=== PATIENT | female | born 1955 | race African-American/Black ===

== ENCOUNTER 2016-04-14 13:13 | Emergency (ER) | payer BC ==
[~2016-04-14] VITALS: Ht 175.3 cm; Wt 99.8 kg
--- NOTE | ~2016-04-14 | EKG ---
[address] [place] [address] ELECTROCARDIOGRAM REPORT Name: CATHY COOK Room #: REG DONNA Wise#: [id number] Admission: 04/14/16 Attend Phys: Discharge: Date of : 55 Report #: [id number] THIS REPORT FOR: //name// [facility] ED Test Date: 2016-04-14 Test Time: 14:07:44 Pat Name: CATHY COOK Department: Room: Gender: F Factory Assembler: DARLING : 1955 Requested By: [place] Order Number: [id number] MD: Tray Zepeda Measurements Intervals [place] Rate: 68 P: 47 PA: 152 QRS: -17 QRSD: 88 T: 27 QT: 403 QTc: 429 Interpretive Statements Sinus rhythm Borderline left axis deviation No previous ECG available for comparison Electronically Signed On 04-14-2016 16:11:53 [employer]IF[employer] DIRECTOR by Tray Zepeda [email or web address] <ELECTRONICALLY SIGNED> By: Tray Zepeda MD 04/14/16 1611 1407 1407 Tray Zepeda MD /MARLENE
[~2016-04-14 13:13] MED LIST: ASPIR 8181 MG PO; DIOVAN HCT 80-1 EACH PO; EFFIENT10 MG PO; FOLIC ACID1 MG PO; HYDROXYCHLOROQ200 M1 PO; LISINOPRIL10 MG PO; METHOTREXATE 22.5 MG PO; NITROGLYCERIN0.4 MG SUBLING; TOPROL XL25 MG PO; VENTOLIN HFA 1818 GM INH
[2016-04-14 13:48] LABS: HEMATOCRIT 36.3 % (37.0-47.0); HEMOGLOBIN 12.2 gm/dL (12.0-15.0); MCH 28.2 pg (26.0-34.0); MCHC 33.6 % (28.0-37.0); MCV 83.8 fL (80.0-100.0); PLATELET COUNT 280 thou/uL (150-400); RBC 4.33 mil/uL (4.20-5.00); RDW 14.2 % (10.5-14.5); WBC 4.7 thou/uL (4.0-11.0)
[2016-04-14 13:50] LABS: MANUAL DIFF YES
[2016-04-14 13:56] LABS: CALCIUM 9.1 mg/dL (8.5-10.1); CREATININE 1.1 mg/dL (0.6-1.3)
[2016-04-14 14:19] LABS: ABSOLUTE NEUTROPHILS 3.4 thou/uL (1.4-8.2); TOTAL CELL COUNT 100
[2016-04-14 14:20] LABS: OVALOCYTES 1+
[2016-04-14] MEDS ORDERED: XARELTO15 MG PO (15:38)
== END 2016-04-14 17:17 | disposition home or self-care (01) ==
LOC: ER 13:13
PROVIDERS: Emergency Medicine
DX: I26.99 Other pulmonary embolism without acute cor pulmonale (principal); R07.9 Chest pain, unspecified; M54.9 Dorsalgia, unspecified; M25.472 Effusion, left ankle; I10 Essential (primary) hypertension; F10.99 Alcohol use, unspecified with unspecified alcohol-induced disorder; Z87.891 Personal history of nicotine dependence

== ENCOUNTER → 2019-12-31 | Outpatient (CLI) | payer BC ==
[~2019-12-31] MED LIST changes: +XARELTO15 MG PO
== END ==
LOC: SJCVCIMAG 09:03
PROVIDERS: ATTEND Nuclear Medicine Nuclear Cardiology
DX: I87.2 Venous insufficiency (chronic) (peripheral) (principal)

== ENCOUNTER 2020-10-15 10:32 | Emergency (ER) | payer BC ==
[~2020-10-15] VITALS: Ht 175.3 cm; Wt 92.1 kg
[2020-10-15] MEDS ORDERED: PLAQUENIL200 MG PO (11:02)
[2020-10-15] MEDS ORDERED: PREDNISONE25 GM PO (11:03)
[2020-10-15] MEDS ORDERED: AZATHIOPRINE50 MG PO (11:04)
[2020-10-15 11:05] LABS: ABSOLUTE NEUTROPHILS 2.8 thou/uL (1.4-8.2); BASOPHILS 0.2 % (0.0-2.0); EOSINOPHILS 1.7 % (0.0-3.0); HEMOGLOBIN 12.6 gm/dL (12.0-15.0); LYMPHOCYTES 8.5 % (24.0-44.0); MCH 30.8 pg (26.0-34.0); MCV 90.8 fL (80.0-100.0); MONOCYTES 10.7 % (1.0-8.0); PLATELET COUNT 208 thou/uL (150-400); POLYS 78.9 % (36.0-66.0); RBC 4.07 mil/uL (4.20-5.00); RDW 15.5 % (10.5-14.5); WBC 3.5 thou/uL (4.0-11.0)
[2020-10-15 11:12] LABS: ANION GAP 6 mmol/L (7-16); BUN 18 mg/dL (7-18); CALCIUM 8.9 mg/dL (8.5-10.1); CHLORIDE 105 mmol/L (98-107); CO2 27 mmol/L (21-32); CREATININE 1.2 mg/dL (0.6-1.0); GLUCOSE 89 mg/dL (74-106); POTASSIUM 4.3 mmol/L (3.5-5.1); SODIUM 138 mmol/L (136-145)
[2020-10-15 11:23] LABS: ALBUMIN 2.9 g/dL (3.4-5.0); SGOT 31 U/L (15-37); SGPT 15 U/L (14-59); TOTAL BILIRUBIN 0.8 mg/dL (0.2-1.0); TOTAL PROTEIN 8.3 g/dL (6.4-8.2); TROPONIN-I <0.06 ng/mL (<0.06)
[2020-10-15 12:27] VITALS: BP 135/69
--- NOTE | 2020-10-16 15:15 | EKG ---
[place] [place] [address] [facility] [place] [address] ELECTROCARDIOGRAM REPORT Name: CATHY COOK BUNNY Room #: DEP Billie#: [id number] Admission: 10/15/20 Attend Phys: Discharge: 10/15/20 Date of : 55 Report #: [id number] [facility] ED Test Date: 2020-10-15 Test Time: 10:54:44 Pat Name: CATHY COOK Department: Room: Gender: F Process Control Specialist: marcia : 1955 Requested By: Lavell Looney Order Number: [id number] MD: Jose Waddell Measurements Intervals [place] Rate: 59 P: 61 MA: 155 QRS: -21 QRSD: 92 T: 48 QT: 420 QTc: 416 Interpretive Statements Sinus rhythm Borderline left axis deviation Baseline wander in lead(s) V3 Compared to ECG 04/14/2016 14:07:44 No significant changes Electronically Signed On 10-16-2020 15:15:10 CDT by Jose Waddell [email or web address] <ELECTRONICALLY SIGNED> By: Jose Waddell MD, [facility] 10/16/20 1515 1054 53 Jose Waddell MD, FACC /EPI
== END 2020-10-15 12:30 | disposition home or self-care (01) ==
LOC: ER 10:32
PROVIDERS: Emergency Medicine
DX: I10 Essential (primary) hypertension (principal); M06.9 Rheumatoid arthritis, unspecified; Z87.891 Personal history of nicotine dependence; Z79.82 Long term (current) use of aspirin; Z79.899 Other long term (current) drug therapy